=== PATIENT | female | born 1990 | race Hispanic/Latino ===

== ENCOUNTER → 2024-12-25 | Outpatient (CLI) | payer OTHER ==
[2024-12-25 09:23] LABS: INR 0.99 (0.85-1.15); PROTHROMBIN TIME 10.5 SEC (9.6-11.6)
[2024-12-25 09:24] LABS: PARTIAL THROMBOPLASTIN TIME 28.2 SEC (26.3-35.5)
--- NOTE | 2024-12-25 09:45 | NUR ---
U/S GD LT BREAST BX PROCEDURE PERFORMED BY DR Gage PEARCE. PUNCTURE SITE LT BREAST AT 1 O'CLOCK AND PATIENT TOLERATED PROCEDURE WELL. SPECIMEN X 3 COLLECTED AND SENT TO LAB. TISSUE MARKER DEPLOYED AT BIOPSY NEEDLE REMOVED. END OF PROCEDURE AT 0910. DRESSING APPLIED AND NO BLEEDING NOTED. DISCHARGE INSTRUCTIONS GIVEN TO PATIENT AND VERBALIZED UNDERSTANDING. DISCHARGED VIA AMBULATION AT 0945 AAO X3 WITH NO C/O PAIN.
--- NOTE | 2024-12-25 10:29 | HMCIMG ---
US BREAST BX 1ST LESION IR HISTORY: Left breast nodule at 1:00 COMPARISON: None TECHNIQUE: Informed consent was obtained. Risks and benefits were explained to the patient. A timeout was performed. Patient was prepped and draped in a sterile fashion. Local anesthetics was given as required. Under ultrasound guidance, left breast nodule at 1:00 was localized. This was compared with previous sulci study. Ultrasound guidance cyst aspiration was first attempted with no definite fluid aspirated. Subsequently, ultrasound guidance core biopsy was performed with 14-gauge Bard biopsy gun with coaxial arrangement. 3 core biopsy specimens were obtained. The end of the procedure, microsurgical clip was left in place. FINDINGS: Patient tolerated procedure without complication. Patient left the department in good condition. IMPRESSION: 1. Uncomplicated ultrasound guidance left breast cyst aspiration and core biopsy
== END | disposition home or self-care (01) ==
LOC: RAH 07:58
PROVIDERS: ATTEND Surgery
DX: N63.21 Unspecified lump in the left breast, upper outer quadrant (principal); N62 Hypertrophy of breast; N60.02 Solitary cyst of left breast; E03.9 Hypothyroidism, unspecified; Z83.3 Family history of diabetes mellitus; Z82.49 Family history of ischemic heart disease and other diseases of the circulatory system; Z79.01 Long term (current) use of anticoagulants; Z79.899 Other long term (current) drug therapy
CPT/HCPCS: 19083; 85610; 85730; 36415; 88305; A4215 ×2; A4648